=== PATIENT | male | born 1970 | race Caucasian/White ===

== ENCOUNTER 2020-09-13 14:54 | Emergency (ER) | payer OTHER ==
[2020-09-13] MEDS ORDERED: CEPHALEXIN500 M1 PO (16:32)
== END 2020-09-13 16:50 | disposition home or self-care (01) ==
LOC: ER1 14:54
DX: G51.0 Bell's palsy (principal); L03.032 Cellulitis of left toe; E11.40 Type 2 diabetes mellitus with diabetic neuropathy, unspecified
CPT/HCPCS: 99283